=== PATIENT | female | born 1960 | race Caucasian/White ===

== ENCOUNTER 2017-12-23 09:09 | Outpatient (CLI) | payer OTHER ==
--- NOTE | 2017-12-23 12:44 | MRI ---
MRI BRAIN WITHOUT CONTRAST: HISTORY: Fine tremor. Right-sided weakness. Right arm tremor. Left arm weakness. FINDINGS: No restricted diffusion is seen. There are a few tiny foci of T2 prolongation in the periventricular /subcortical white matter, consistent with mild chronic small vessel ischemic disease. No evidence o f infarct, hemorrhage, midline shift, or abnormal extraaxial fluid collections are seen. There is mi ld mucosal disease in the paranasal sinuses. IMPRESSION: 1. Mild chronic small vessel ischemic disease. 2. No evidence of acute intracranial process. POS: C
== END 2017-12-23 09:10 | disposition home or self-care (01) ==
LOC: TBSIIMAG 09:09
PROVIDERS: ATTEND Student in an Organized Health Care Education/Training Program
DX: G25.2 Other specified forms of tremor (principal); R53.1 Weakness; R26.9 Unspecified abnormalities of gait and mobility; I67.82 Cerebral ischemia
CPT/HCPCS: 70551

== ENCOUNTER 2018-02-12 14:19 | Outpatient (CLI) | payer OTHER | END 2018-02-12 14:20 | disposition home or self-care (01) | LOC: BICMAMMO 14:19 | PROVIDERS: ATTEND Obstetrics & Gynecology | DX: Z12.31 Encounter for screening mammogram for malignant neoplasm of breast (principal) | CPT/HCPCS: 77063; 77067 ==

== ENCOUNTER 2018-03-25 08:38 | Outpatient (CLI) | payer OTHER ==
--- NOTE | 2018-03-25 14:54 | NM ---
NUCLEAR MEDICINE BRAIN IMAGING: HISTORY: Parkinson's disease. TECHNIQUE: A ANETTE scan with axial tomographic images of the brain was obtained 3 hours after the intravenous admi nistration of 5 mCi Iodine -124 Ioflupane. The patient was pretreated with 130 mg of potassium iodid e orally 1 hour prior to the administration of the radiopharmaceutical. FINDINGS: There is loss of crescentic appearance of the striate bilaterally with loss of tracer uptake in the p utamen on either side. IMPRESSION: Parkinsonian syndrome. POS: C
== END 2018-03-25 08:39 | disposition home or self-care (01) ==
LOC: NM 08:38
PROVIDERS: ATTEND Psychiatry & Neurology Neurology
DX: G20 Parkinson's disease (principal)
CPT/HCPCS: 78607; A9584

== ENCOUNTER 2020-10-31 12:28 | Outpatient (CLI) | payer MEDICARE ==
--- NOTE | 2020-10-31 13:53 | RAD ---
RIGHT FEMUR TWO VIEWS: 10/31/20 HISTORY: Right leg pain. No injury. Some very mild arthritic change of the hip without joint space narrowing and very mild arthritic ritchie ges of the knee suggesting some slight medial compartment narrowing. No fractures. No lytic or blasti c bony changes. IMPRESSION: No acute findings. Mild arthritic changes of the hip. POS: [facility]
== END 2020-10-31 12:29 | disposition home or self-care (01) ==
LOC: BICRAD 12:28
PROVIDERS: ATTEND Family Medicine
DX: M79.604 Pain in right leg (principal); M16.11 Unilateral primary osteoarthritis, right hip

== ENCOUNTER 2021-07-10 13:47 | Emergency (ER) | payer OTHER, MEDICARE ==
[2021-07-10] MEDS ORDERED: Boostrix 0.5 ML (Tdap) VIAL ONE (14:22)
[2021-07-10] MEDS ORDERED: Lidocaine 1% w/Epinephrine 1:100K 20 ML VIAL ONE (14:49)
== END 2021-07-10 15:52 | disposition home or self-care (01) ==
LOC: ERS 13:47
DX: S51.012A Laceration without foreign body of left elbow, initial encounter (principal); W01.10XA Fall on same level from slipping, tripping and stumbling with subsequent striking against unspecified object, initial encounter; Z79.899 Other long term (current) drug therapy; Z23 Encounter for immunization
CPT/HCPCS: 12002; 90471; 90715

== ENCOUNTER 2021-11-24 15:29 | Emergency (ER) | payer MEDICARE ==
[~2021-11-24 15:29] MED LIST: Iopamidol-370 76% 500 ML 1 ML ONE
[2021-11-24] MEDS ORDERED: Morphine 4 MG/ML VIAL ONE (16:21)
[2021-11-24] MEDS ORDERED: Ondansetron PF 4 MG/2 ML Vial ONE (16:21)
[2021-11-24 17:00] LABS: #Lymphocytes 0.7 thou/uL (1.20-3.40); #Monocytes 0.5 thou/uL (0.11-0.59); #Neutrophils 12.8 thou/uL (1.40-6.50); %Basophils 0.1 % (0.0-1.0); %Eosinophils 0.1 % (0.0-10.0); %Lymphocytes 4.7 % (21.0-51.0); %Monocytes 3.8 % (0.0-10.0); %Neutrophils 91.3 % (42.0-75.0); Hemoglobin 12.6 g/dL (12.0-16.0); Mean Corpuscular HGB CONC 33.3 g/dL (32.0-36.0); Mean Corpuscular Hemoglobin 32.2 pg (27.0-31.0); Mean Corpuscular Volume 96.7 fL (78.0-98.0); Mean Platelet Volume 7.5 fL (7.4-10.4); Platelet Count 185 thou/uL (130-400); RBC Distribution Width 11.2 % (11.5-14.5); Red Blood Cell (RBC) Count 3.92 mill/uL (4.20-5.40)
[2021-11-24 17:23] LABS: ALT (SGPT) Less than 7 U/L (8-55); AST (SGOT) 15 U/L (5-34); Albumin 4.5 g/dL (3.5-5.0); Alkaline Phosphatase 103 U/L (40-110); Anion Gap 15 mmol/L (10-20); BUN (Urea Nitrogen) 23 mg/dL (9.8-20.1); Bilirubin, Total 1.4 mg/dL (0.2-1.2); Calc. Creatinine Clearance 0 mL/min (70-130); Carbon Dioxide 26 mmol/L (22-29); Chloride 101 mmol/L (98-107); Globulin 2.6 g/dL (2.4-3.5); Glucose 119 mg/dL (70-105); Lipase 7 U/L (8-78); Potassium 4.3 mmol/L (3.5-5.1); Protein, Total 7.1 g/dL (6.0-8.3); Sodium 138 mmol/L (136-145)
== END 2021-11-24 18:25 | disposition home or self-care (01) ==
LOC: ERS 15:29
DX: K56.41 Fecal impaction (principal); G20 Parkinson's disease; Z79.899 Other long term (current) drug therapy
CPT/HCPCS: 74177; 80053; 83690; 85025; 96374; 96375; J2270; J2405; Q9967